=== PATIENT | female | born 1990 | race Caucasian/White ===

== ENCOUNTER 2020-10-29 11:37 | Emergency (ER) | payer BC, OTHER, SELFPAY ==
[~2020-10-29] VITALS: Ht 162.6 cm; Wt 57.9 kg
[2020-10-29 11:45] VITALS: BP 127/58
--- NOTE | 2020-10-29 11:46 | NUR ---
PT BIB EMS FOR ALTERED LOC. WAS FOUND IN A PARKING LOT WITH NO SHOES OR PANTS AND WAS VOMITTING. WAS NOT ANSWERING QUESTIONS APPROPRIATLEY. UPON FIRST CONTACT PT WAS AOX1 AND WAS COMBATIVE. EMS ADM 4MG VERSED IM AND PLACED HER IN 4 PT RESTRAINTS. UPON ARRIVAL TO ER PT IS AOX4 AND COOPERATIVE. PT DENIES DRUG OR ETOH USE. HX OF ANXIETY. NO MEDS. WHEN ASKED WHERE PT IS FROM SHE SAID "IM FROM [facility]". PT ALSO STATES SHE WAS SET UP BY A GANG TO BE KIDNAPPED. PT CONNECTED TO MONITORING EQUIPMENT. BLANKET PROVIDED
--- NOTE | 2020-10-29 12:23 | NUR ---
Upon initial contact, pt calm and cooperative. A&Ox4 but no memory of what happened. Pt Denies drug/ etoh use. Pt requesting we contact her mother and wants water. Pt provided with water and meal tray. Sherley HERNANDEZ talked with mother who is on way to hospital now.
[2020-10-29 12:33] LABS: ALANINE AMINOTRANSFERASE 28 U/L (12-78); ALBUMIN 4.4 g/dL (3.4-5.0); ANION GAP 6 mmol/L (5-15); BASOPHILS % (AUTO) 0 % (0-1); CALCIUM 9.5 mg/dL (8.5-10.1); CHLORIDE 107 mmol/L (98-107); CREATININE 1.01 mg/dL (0.55-1.02); EOSINOPHILS % (AUTO) 0 % (1-7); LYMPHOCYTES % (AUTO) 6 % (22-44); MEAN CORPUSCULAR HEMOGLOBIN 31.5 pg (27.0-34.8); MEAN CORPUSCULAR HGB CONC 34.9 g/dL (32.4-35.8); MEAN PLATELET VOLUME 7.3 fL (7.4-10.4); MONOCYTES % (AUTO) 7 % (2-9); NEUTROPHILS % (AUTO) 87 % (42-75); PLATELET COUNT 378 x10^3/uL (130-400); RED BLOOD COUNT 4.77 x10^6/uL (3.82-5.3); RED CELL DISTRIBUTION WIDTH 13.3 % (9.6-15.2); SALICYLATE LEVEL 2.8 mg/dL (2.8-20.0)
[2020-10-29 12:37] LABS: MICROSCOPIC INDICATED
[2020-10-29 12:44] LABS: ALKALINE PHOSPHATASE 134 U/L (45-117); BILIRUBIN,TOTAL 0.7 mg/dL (0.2-1.0); TOTAL PROTEIN 9.4 g/dL (6.4-8.2)
[2020-10-29 12:54] LABS: AMPHETAMINE SCREEN, URINE Positive (Negative); BARBITURATE SCREEN, URINE Negative (Negative); BENZODIAZEPINE SCREEN, URINE Positive (Negative); CANNABINOID SCREEN, URINE Positive (Negative); COCAINE SCREEN, URINE Negative (Negative); METHADONE SCREEN, URINE Negative (Negative); OPIATE SCREEN, URINE Negative (Negative)
[2020-10-29 13:00] LABS: FREE T4 (FREE THYROXINE) 1.19 ng/dL (0.76-1.46)
--- NOTE | 2020-10-29 13:02 | NUR ---
Mom at bedside.
== END 2020-10-29 13:22 | disposition home or self-care (01) ==
LOC: ED 12:48
DX: F39 Unspecified mood [affective] disorder (principal); F15.10 Other stimulant abuse, uncomplicated; G92 Toxic encephalopathy
CPT/HCPCS: 36415; 80053; 80299; 80307; 80320; 80329; 81001; 84439; 84443; 84703; 85025; 99283; G0480